=== PATIENT | male | born 1950 | race Caucasian/White ===

== ENCOUNTER 2021-04-21 06:58 | Inpatient (IN) ==
[2021-04-15 12:41] LABS: Basophils % 0.4 % (0.0-0.8); Eosinophils # 0.1 10*3/uL (0.0-0.87); Eosinophils % 0.5 % (0.00-10.9); Hemoglobin 15.5 GM/DL (14.0-18.0); Immature Granulocytes % 0.5 %; Immature Granulocytes Absolute 0.05 #; Lymphocytes # 1.9 10*3/uL (1.4-4.0); Lymphocytes % 20.4 % (21.2-54.2); Mean Corpuscular Volume 86.3 FL (87-102); Mean Platelet Volume 11.6 FL (9.6-12.0); Monocytes % 5.9 % (1.7-12.7); Neutrophils % 72.3 % (38.7-73.9); Platelet Count 179 T/CUMM (130-400); Red Blood Count 4.98 MC/CUMM (3.8-5.5); Red Cell Distribution Width 12.8 % (9.3-17.3); White Blood Count 9.2 T/CUMM (4-12)
[2021-04-15 12:51] LABS: PT Patient Result 11.1 SECS (10.5-12.0)
[2021-04-15 13:05] LABS: Albumin 3.9 G/DL (3.4-5.0); Bilirubin,Total 1.3 MG/DL (0.2-1.0); Calcium 9.2 MG/DL (8.5-10.1); Osmolality,Calculated 262.8 MOS/KG (273-304); Potassium 4.8 MMOL/L (3.5-5.1); Total Protein 7.4 G/DL (6.4-8.2)
[2021-04-21] MEDS ORDERED: LIDOCAINE 1% 5 ML VIAL ONE (07:12)
[2021-04-21] MEDS ORDERED: PHENYLEPHRINE DRIP 20 MG/250 ML PREMIX IV ONE (07:12)
[2021-04-21] MEDS ORDERED: HEPARIN/NACL 0.9% 2 UNITS/ML 1,000 UNIT/500 ML BAG IV ONE (07:12)
[2021-04-21] MEDS ORDERED: NITROGLYCERIN DRIP 50 MG/250 ML BOTTLE IV ONE (07:12)
[2021-04-21] MEDS ORDERED: HEPARIN 5,000 UNIT/1 ML VIAL ONE (07:36)
[2021-04-21] MEDS ORDERED: LIDOCAINE 1% 20 ML VIAL ONE (07:36)
[2021-04-21] MEDS ORDERED: ETOMIDATE 40 MG/20 ML VIAL IV ONE (08:03)
[2021-04-21] MEDS ORDERED: DEXAMETHASONE 4 MG/1 ML VIAL ONE ×2 (08:03→09:20)
[2021-04-21] MEDS ORDERED: ROCURONIUM 50 MG/5 ML VIAL IV ONE (08:03)
[2021-04-21] MEDS ORDERED: ONDANSETRON 4 MG/2 ML VIAL ONE (08:03)
[2021-04-21] MEDS ORDERED: fentaNYL 100 MCG/2 ML VIAL ONE (08:03)
[2021-04-21] MEDS ORDERED: SEVOFLURANE 1 UNIT/15 MINUTE INH ONE (08:03)
[2021-04-21] MEDS ORDERED: LIDOCAINE 2% 5 ML VIAL ONE (08:03)
[2021-04-21] MEDS ORDERED: HEPARIN 10,000 UNIT/10 ML VIAL ONE (08:06)
[2021-04-21] MEDS ORDERED: LACTATED RINGERS 1,000 ML IV SCH (08:30)
[2021-04-21] MEDS ORDERED: SUGAMMADEX 200 MG/2 ML VIAL IV ONE (10:08)
[2021-04-21] MEDS ORDERED: NEOSTIGMINE 10 MG/10 ML VIAL ONE (10:09)
[2021-04-21] MEDS ORDERED: NALOXONE 0.4 MG/ML VIAL IV PRN (10:12)
[2021-04-21] MEDS ORDERED: ONDANSETRON 4 MG/2 ML VIAL IV PRN ×2 (10:12→10:56)
[2021-04-21] MEDS ORDERED: DEXTROSE 50% 25 GM/50 ML VIAL IV PRN (10:12)
[2021-04-21] MEDS ORDERED: GLUCAGON 1 MG VIAL IM PRN (10:12)
[2021-04-21] MEDS ORDERED: PROMETHAZINE 25 MG/1 ML VIAL IM PRN (10:12)
[2021-04-21] MEDS ORDERED: oxyCODONE/ACETAMINOPHEN 5-325 MG TABLET PO PRN (10:12)
[2021-04-21] MEDS ORDERED: HYDROmorphone 2 MG/1 ML VIAL IV PRN ×3 (10:12→10:56)
[2021-04-21] MEDS ORDERED: NITROPRUSSIDE 100 MG in DEXTROSE 5% 250 ML IV SCH (10:30)
[2021-04-21] MEDS ORDERED: PHENYLEPHRINE DRIP 40 MG/250 ML PREMIX IV SCH (10:30)
[2021-04-21] MEDS ORDERED: BUTALBITAL/ACETAMIN/CAFFEINE 50-325-40 MG TABLET PO PRN (11:04)
[2021-04-21] MEDS ORDERED: NICOTINE 14 MG/24 HR PATCH TRANSDERM ONE (11:06)
[2021-04-21 11:25] VITALS: BP 134/65
[2021-04-21] MEDS: LACTATED RINGERS 1,000 ML IV SCH ×2 (11:26→21:28)
[2021-04-21] MEDS: INSULIN REGULAR 100 UNIT/ML SUBCUT SCH ×3 (11:46→23:45)
[2021-04-21] MEDS: oxyCODONE/ACETAMINOPHEN 5-325 MG TABLET PO PRN ×2 (14:25→20:43)
[2021-04-22] MEDS: INSULIN REGULAR 100 UNIT/ML SUBCUT SCH (06:38)
[2021-04-22] MEDS: oxyCODONE/ACETAMINOPHEN 5-325 MG TABLET PO PRN (06:38)
[2021-04-22] MEDS: LACTATED RINGERS 1,000 ML IV SCH ×3 (06:41→06:50)
[2021-04-22] MEDS ORDERED: CLOPIDOGREL 75 MG TABLET PO SCH ×2 (09:00)
[2021-04-22] MEDS ORDERED: SPIRONOLACTONE 25 MG TABLET PO SCH (09:00)
[2021-04-22] MEDS ORDERED: SIMVASTATIN 10 MG TABLET PO SCH (09:00)
[2021-04-22] MEDS ORDERED: OMEPRAZOLE ODT 20 MG TABLET PO SCH (09:00)
[2021-04-22] MEDS ORDERED: EZETIMIBE 10 MG TABLET PO SCH (09:00)
[2021-04-22] MEDS ORDERED: lisinopriL 10 MG TABLET PO SCH (09:00)
[2021-04-22] MEDS ORDERED: ASPIRIN EC 81 MG TABLET PO SCH ×2 (09:00)
[2021-04-22] MEDS ORDERED: hydroCHLOROthiazide 12.5 MG CAPSULE PO SCH (09:00)
[2021-04-22] MEDS ORDERED: METOPROLOL TARTRATE 25 MG TABLET PO SCH (09:00)
== END 2021-04-22 17:35 | disposition home or self-care (01) | DRG 39 ==
LOC: N.OR 06:58 → N.SDSINP 07:17 → N.ICU 11:14
PROVIDERS: ADMIT Surgery; ATTEND Surgery